=== PATIENT | female | born 2000 | race Caucasian/White ===

== ENCOUNTER 2024-05-16 11:13 | Outpatient (CLI) | payer BC, SELFPAY | END 2024-05-16 11:14 | disposition home or self-care (01) | PROVIDERS: Visit Provider Nurse Practitioner Family | DX: L01.00 Impetigo, unspecified (principal); L23.9 Allergic contact dermatitis, unspecified cause; K58.8 Other irritable bowel syndrome; Z79.61 Long term (current) use of immunomodulator | CPT/HCPCS: G0463 ==